=== PATIENT | male | born 1980 | race Caucasian/White ===

== ENCOUNTER 2023-11-25 22:40 | Emergency (ER) | payer BC, SELFPAY ==
[2023-11-25 22:53] VITALS: PULSE 112
[2023-11-25 22:54] VITALS: BP 139/90; PULSE 104; PULSE 108; RESP 18; RESP 28; TEMP 36.6; O2SAT 96; O2SAT 98; BMI 31.0
--- NOTE | 2023-11-25 22:59 | EKG_ITS ---
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
[2023-11-25 23:00] VITALS: BP 133/87; PULSE 103; RESP 27; O2SAT 98
--- NOTE | 2023-11-25 23:28 | ED.CHESTPAIN ---
HPI - Chest Pain General Chief Complaint: Chest Pain Stated Complaint: heart feels weird is feeling numbness Time Seen by Provider: 11/25/23 22:53 Source: patient Mode of arrival: Ambulatory Limitations: no limitations History of Present Illness HPI narrative: 43-year-old male with no reported past medical history presents for abnormal sensation in his chest. Patient states that he has had symptoms intermittently for the last several months, but today his fiancee left him and he has been feeling very anxious and down. This afternoon he felt worsening palpitations and chest pain and decided to present for evaluation. In the ED room patient states that his symptoms have now resolved, he only feels generally tired. Exam Initial Vital Signs Initial Vital Signs: Vital Signs Pulse Rate 112 H 11/25/23 22:53 Const: Awake, alert, no acute distress, nontoxic appearing Cardiac: regular rate, regular rhythm RESP: unlabored, clear bilaterally, no wheezing GI: Soft, nontender, nondistended, no rebound, no guarding MSK: Atraumatic, full range of motion, pulses equal Skin: Warm, Dry, intact, no rashes Neuro: AO x3, CN II-XII grossly intact, moves all extremities Course Orders Ordered: ED Orders 11/25/23 23:00 CBC Auto Diff [Complete Blood Count AUTO DIFF] Stat CMP [Comprehensive Metabolic Panel] Stat TSH [Thyroid Stimulating Hormone] Stat Troponin & CK Cardiac Panel Stat 11/25/23 23:28 Chest [XR chest 1V] Stat Vital Signs Vital signs: Vital Signs - 8 hr 11/25/23 22:54 Temperature 97.9 F Pulse Rate 104 H Respiratory Rate 18 Blood Pressure 139/90 Pulse Oximetry 96 Oxygen Delivery Method Room Air MDM - Chest Pain Differential Diagnosis Differential diagnosis: Likely atypical chest pain, costochondritis and chest pain Lab Data 11/25/23 23:00 11/25/23 23:00 Labs: Lab Results 11/25/23 Range/Units 23:00 WBC 11.8 H (4.5-11.0) X10^3/uL RBC 5.29 (4.5-5.9) X10^6/uL Hgb 15.9 (13.5-17.5) g/dL Hct 47.6 (41-53) % MCV 89.9 (80-100) fL MCH 30.1 (26-34) PG MCHC 33.5 (30-36) % RDW 14.2 (11.6-14.8) % Plt Count 251 (150-400) X10^3/uL Neut % (Auto) 71.0 (50-75) % Lymph % (Auto) 19.7 L (25-40) % [place] % (Auto) 7.6 (3-14) % Eos % (Auto) 1.1 L (2-4) % Baso % (Auto) 0.6 (0-2) % Neut # (Auto) 8400 H (1377-4996) /uL Lymph # (Auto) 2300 (5746-9110) /uL [place] # (Auto) 900 (0-900) /uL Eos # (Auto) 100 (0-450) /uL Baso # (Auto) 100 (0-100) /uL Sodium 139 (137-145) mmol/L Potassium 3.6 (3.4-5.1) mmol/L Chloride 108 H (98-107) mmol/L Carbon Dioxide 26 (22-32) mmol/L BUN 11 (9-20) mg/dL Creatinine 0.97 (0.66-1.25) mg/dL Estimated GFR > 60 (>60) mL/min BUN/Creatinine Ratio 11.3 (6-22) Glucose 97 (70-100) mg/dL Calcium 9.7 (8.4-10.2) mg/dL Total Bilirubin 1.7 H (0.2-1.3) mg/dL AST 45 (17-59) IU/L ALT 100 H (<50) IU/L Alkaline Phosphatase 64 (38-126) U/L Total Creatine Kinase 203 H (55-170) U/L Troponin I < 0.012 (0.01-0.034) ng/mL Total Protein 7.5 (6.3-8.2) g/dL Albumin 4.5 (3.5-5.0) g/dL Globulin 3.0 (1.7-4.1) g/dL Albumin/Globulin Ratio 1.5 (1.0-2.8) TSH 1.75 (0.47-4.68) uIU/mL Imaging Data Chest x-ray: Radiologist's Impression: PROCEDURE: XR CHEST 1V INDICATIONS: PALPITATIONS TECHNIQUE: One view of the chest was acquired. COMPARISON: None. FINDINGS: Surgical changes and devices: None. Lungs and pleura: Lungs are clear. No pleural effusions or pneumothorax. Mediastinum: Mediastinal contours appear normal. Heart size is normal. Bones and chest wall: No suspicious bony lesions. Overlying soft tissues appear unremarkable. IMPRESSION: No acute pulmonary process. Dictated by: Raven Mireles M.D. on 11/26/2023 at 0:30 Approved by: Raven Mireles M.D. on 11/26/2023 at 0:30 ECG Data Interpretation: Sinus tachycardia at 104 beats per minute. Normal [place], no ST T wave changes, no STEMI MDM Narrative Medical decision making narrative: Several months of intermittent symptoms, worse today. Asymptomatic by the time of presentation to the emergency department. Very mildly tachycardic with heart rate between 100 and 110 beats per minute. Chest x-ray negative for acute findings. Laboratory work unremarkable. Patient also noted to be mildly hypertensive in the emergency department. Patient counseled on lab and imaging findings. He does not have a primary care doctor, and I strongly recommended that patient follow up with a PCP. Today he has borderline heart rate and elevated blood pressures and he was informed of these findings. Discharge Plan Departure Patient Disposition: Home Clinical Impression: Palpitations Instructions: DI for Palpitations Activity Restrictions/Additional Instructions: Your blood work, EKG, and chest x-ray here today are reassuring. Your laboratory work does not indicate any heart attack, electrolyte abnormality, or thyroid problem. Your chest x-ray did not show any masses or infections. Your heart rate is just slightly on the side of fast. I recommend that you monitor your heart rate at home and follow up with the primary care doctor. If your heart rate is always elevated then you may need to start medication for this, however this could be related to your ongoing reported stress and anxiety. Talk to a primary care doctor about possibly starting long-term medications for anxiety as this may help to regulate your emotions better. Referrals: Doctor Gaxiola MD [Primary Care Provider] - Stand Alone Forms: Patient Portal/API
[2023-11-25 23:30] VITALS: PULSE 102; RESP 38; O2SAT 96
[2023-11-25 23:31] VITALS: BP 143/79; PULSE 104; RESP 32; O2SAT 94
[2023-11-25 23:35] LABS: Add Manual Diff / Slide Review NO; Basophils Absolute Auto 100 /uL (0-100); Basophils Percent Auto 0.6 % (0-2); Eosinophils Absolute Auto 100 /uL (0-450); Eosinophils Percent Auto 1.1 % (2-4); Hematocrit 47.6 % (41-53); Hemoglobin 15.9 g/dL (13.5-17.5); Lymphocytes Absolute Auto 2300 /uL (1100-4500); Lymphocytes Percent Auto 19.7 % (25-40); Mean Corpuscular HGB Conc 33.5 % (30-36); Mean Corpuscular Hemoglobin 30.1 PG (26-34); Mean Corpuscular Volume 89.9 fL (80-100); Monocytes Absolute Auto 900 /uL (0-900); Monocytes Percent Auto 7.6 % (3-14); Neutrophils Absolute Auto 8400 /uL (1500-7000); Platelet Count 251 X10^3/uL (150-400); Red Blood Cell Count 5.29 X10^6/uL (4.5-5.9); Red Cell Distribution Width 14.2 % (11.6-14.8); White Blood Cell Count 11.8 X10^3/uL (4.5-11.0)
[2023-11-25 23:43] LABS: Alanine Aminotransferase 100 IU/L (<50); Albumin 4.5 g/dL (3.5-5.0); Albumin Globulin Ratio 1.5 (1.0-2.8); Alkaline Phosphatase 64 U/L (38-126); Aspartate Aminotransferase 45 IU/L (17-59); BUN Creatinine Ratio 11.3 (6-22); Bilirubin Total 1.7 mg/dL (0.2-1.3); Blood Urea Nitrogen 11 mg/dL (9-20); Calcium 9.7 mg/dL (8.4-10.2); Carbon Dioxide 26 mmol/L (22-32); Chloride 108 mmol/L (98-107); Creatine Kinase 203 U/L (55-170); Estimated Glomerular Filt Rate > 60 mL/min (>60); Glucose 97 mg/dL (70-100); HEMOLYSIS < 15 (0-50); Potassium 3.6 mmol/L (3.4-5.1); Sodium 139 mmol/L (137-145); Total Protein 7.5 g/dL (6.3-8.2)
[2023-11-25 23:44] VITALS: BP 150/82; PULSE 104; RESP 14; O2SAT 96
[2023-11-25 23:55] LABS: Troponin I < 0.012 ng/mL (0.01-0.034)
[2023-11-26] VITALS: PULSE 98; RESP 21; O2SAT 97
[2023-11-26 00:04] VITALS: BP 148/98; PULSE 105; RESP 23; O2SAT 97
[2023-11-26 00:24] LABS: Thyroid Stimulating Hormone 1.75 uIU/mL (0.47-4.68)
[2023-11-26 00:30] VITALS: PULSE 96; RESP 25; O2SAT 95
[2023-11-26 00:31] VITALS: BP 169/105; PULSE 99; RESP 23; O2SAT 95
== END 2023-11-26 00:42 | disposition home or self-care (01) ==
PROVIDERS: Emergency Provider Emergency Medicine
DX: R00.2 Palpitations (principal); R00.0 Tachycardia, unspecified
CPT/HCPCS: 36415; 71045; 80053; 82550; 84443; 84484; 85025; 93005; 93010; 99283; 99284